=== PATIENT | male | born 1980 | race Caucasian/White ===

== ENCOUNTER 2019-09-30 14:37 | Observation (INO) | payer SELFPAY ==
[2019-09-30] VITALS (9 sets, daily range): BP systolic 138–170; BP diastolic 75–102; PULSE 53–86; RESP 17–18; TEMP 36.8; O2SAT 92–100; BMI 21.5
--- NOTE | 2019-09-30 16:14 | ED_ITS ---
Documented by User: Jackie Ortiz DO 09/30/19 17:43 HPI - General Adult General: Chief complaint: General Medical Stated complaint: dont feel good, side pain, n/v Time Seen by Provider: 09/30/19 16:14 History of Present Illness: HPI narrative: Pt states he has had severe luq and left side pain since yesterday morning. It is constant but occasionally gets worse. States he has had some vomiting but the pain is the worst part. He denies any urinary symptoms. States he feels feverish and has chills. Onset (ago): day(s) (2) Location: abdomen Radiation: flank Severity: severe Severity scale (1-10): 10 Quality: stabbing Pain Consistency: constant Relieving factors: none Exacerbating factors: none Associated symptoms: Reports decreased appetite, nausea, short of breath and vomiting; Deny chest pain, dyspnea, headache(s) or rash Treatments prior to arrival: none Review of Systems General: Reports: 10 or more systems reviewed and unremarkable except in HPI and below Const: Denies: fatigue ENMT: Denies: throat pain Card: Denies: chest pain Resp: Denies: shortness of breath or productive cough GI: Reports: abdominal pain, nausea and vomiting : Reports: flank pain Musc: Denies: back pain or extremity swelling Skin/Breast: Denies: rash Neuro: Denies: headache, numbness in extremities or weakness in extremities PFSH ED PFSH: Social History Smoking and tobacco status: current every day smoker Physical Exam Const: COMMON NORMALS: no apparent distress and oriented x3 GENERAL APPEARANCE: cooperative; not in distress HENMT: COMMON NORMALS: normocephalic HEAD & SCALP: normal to inspection and normocephalic MOUTH: oral and palatal mucosa normal and lip normal THROAT: posterior oropharynx normal and tonsils normal Neck/C-Spine: COMMON NORMALS: full ROM, no lymphadenopathy, supple and no meningeal signs GENERAL: Yes normal visual inspection and Yes trachea midline Chest: COMMONS NORMALS: inspection of chest normal Resp: COMMON NORMALS: normal respiratory effort and clear to auscultation bilaterally EFFORT & INSPECTION: Yes able to speak in complete sentences and No respiratory distress AUSCULTATION: clear to auscultation bilaterally and diminished lung sounds diffuse Cardio: COMMON NORMALS: regular rate, regular rhythm, S1 normal heart sound, S2 normal heart sound and no murmurs RATE: regular rate RHYTHM: regular rhythm HEART SOUNDS: S1 normal and S2 normal PERIPHERAL PULSES: radial pulses present and dorsalis pedis pulses present GI: INSPECTION: Yes normal to inspection AUSCULTATION: Yes normoactive bowel sounds PALPATION: Yes tender Details: LUQ RECTAL EXAM: Yes deferred : COMMON NORMALS: Yes no CVA tenderness BLADDER/KIDNEY EXAM: Yes no CVA tenderness Back/Pelvis: COMMON NORMALS: no CVA tenderness Extremity: COMMON NORMALS: normal to inspection, full ROM, normal capillary refill, no calf tenderness and no pedal edema Neuro: COMMON NORMALS: oriented x3, CN's II-XII intact bilaterally, moves all extremities and no focal motor deficits MENINGEAL SIGNS: Yes no meningeal signs Skin: COMMON NORMALS: no rashes or lesions noted GENERAL SKIN EXAM: no rashes or lesions noted Course Vital Signs: Vital signs: Vital Signs Temperature 98.3 F 09/30/19 21:25 Pulse Rate 71 09/30/19 21:25 Respiratory Rate 18 09/30/19 22:38 Blood Pressure 161/100 09/30/19 21:25 Pulse Oximetry 100 09/30/19 21:25 MDM - General Adult MDM Narrative: Medical decision making narrative: Pt has a large gall stone on ct that is near neck and may be causing obstruction, I will get us of gb for better picture of cbd. Dr Tejada will assume care Lab Data: Labs: Lab Results 09/30/19 09/30/19 09/30/19 Range/Units 16:07 16:07 16:55 WBC 10.5 H (4.0-10.0) 10^3/ uL RBC 6.00 H (4.1-5.3) 10^6/u L Hgb 17.4 H (11.7-16.6) g/dL Hct 55.1 H (42.0-52.0) % MCV 91.8 (80-94) fL MCH 29.0 (28.0-34.0) pg MCHC 31.6 (30.0-36.0) g/dL RDW 13.8 (12.1-15.1) % Plt Count 305 (130-400) 10^3/c mm MPV 9.8 (7.4-10.4) fL Neut % (Auto) 79.8 % Lymph % (Auto) 13.0 % [place] % (Auto) 5.6 % Eos % (Auto) 0.8 % Baso % (Auto) 0.4 % Neut # (Auto) 8.4 H (1.8-7.7) 10^3/u L Lymph # (Auto) 1.4 (0.8-4.8) 10^3/u L [place] # (Auto) 0.6 (0.2-0.9) 10^3/u L Eos # (Auto) 0.1 (0.0-0.8) 10^3/u L Baso # (Auto) 0.0 (0.0-0.1) 10^3/u L Nucleated RBC % (a uto) 0 % Nucleated RBCs # 0.0 /100WBC Sodium 137 (136-145) mmol/L Potassium 4.3 (3.5-5.1) mmol/L Chloride 100 (98-107) mmol/L Carbon Dioxide 22 (22-29) mmol/L Anion Gap 19.3 H (5-19) BUN 7 (6-20) mg/dL Creatinine 0.8 (0.7-1.2) mg/dL GFR Calculation 109.4 (90-130) mL/min Glucose 114 (65-115) mg/dL Calculated Osmolal ity 281 L (285-295) mOsm/k g Calcium 10.2 (8.5-10.5) mg/dL Total Bilirubin 0.4 (0.15-1.2) mg/dL AST 21 (0-40) U/L ALT 43 H (0-41) U/L Alkaline Phosphata se 109 (40-130) IU/L Total Protein 7.7 (6.6-8.7) g/dL Albumin 4.6 (3.5-5.2) g/dL Globulin 3.1 (1.3-4.6) g/dL Lipase 17 (13-60) U/L Urine Color Yellow (Yellow) Urine Appearance Clear (CLEAR) Urine pH 7 (5-7) Ur Specific Gravit y 1.015 (1.005-1.030) Urine Protein Neg (Negative) Urine Glucose (UA) Norm (Normal) Urine Ketones Negative (Negative) Urine Blood Neg (Negative) Urine Nitrate Negative (Negative) Urine Bilirubin Neg (NEGATIVE) Urine Urobilinogen Norm (Negative) mg/dL Ur Leukocyte Yarelis ase Negative (Negative) Imaging Data^: CXR: Radiologist's impression: [place] [address] XRay Report Signed Patient: Adilson Kruse #: [id number] : 1980Acct#:[id number] Age/Sex: 38 / MADM Date: 09/30/19 Loc: ERRoom/Bed: Attending Dr: Ordering Provider/Ordering MD: Jackie Ortiz DO Date of Service: 09/30/19 Procedure(s): XR chest 1V portable [id number] Accession Number(s): [id number] Report Number: [id number] PROCEDURE INFORMATION: Exam: XR Chest, 1 View Exam date and time: 09/30/2019 5:03 PM Age: 38 years old Clinical indication: Shortness of breath; Left-sided chest pain; Additional info: Pneumonia TECHNIQUE: Imaging protocol: XR of the chest Views: 1 view. COMPARISON: No relevant prior studies available. FINDINGS: Lungs: Unremarkable. No consolidation. Pleural space: Unremarkable. No pleural effusion. No pneumothorax. Heart/Mediastinum: Unremarkable. No cardiomegaly. Bones/joints: Unremarkable. XR/XR chest 1V portable [id number] IMPRESSION: No acute findings. Dictated By:Bharath Zhu Signed By:Jose Juan Zhu Date/Time: CT Abd/Pel: Radiologist's impression: [place] [address] CT Scan Report Signed Patient: Adilson Kruse #: [id number] : 1980Acct#:[id number] Age/Sex: 38 / MADM Date: 09/30/19 Loc: ERRoom/Bed: Attending Dr: Ordering Provider/Ordering MD: Jackie Ortiz DO Date of Service: 09/30/19 Procedure(s): CT kidney stone [id number] Accession Number(s): [id number] Report Number: [id number] PROCEDURE INFORMATION: Exam: CT Abdomen And Pelvis Without Contrast Exam date and time: 09/30/2019 4:55 PM Age: 38 years old Clinical indication: Abdominal pain; Left; Prior surgery; Surgery date: 6+ months; Surgery type: Appy; Patient HX: C/O L flank pain w n/v; Additional info: Ureterolithiasis TECHNIQUE: Imaging protocol: Computed tomography of the abdomen and pelvis without contrast. Total DLP: 777.3 mGy-cm Radiation optimization: All CT scans at this facility use at least one of these dose optimization techniques: automated exposure control; mA and/or kV adjustment per patient size (includes targeted exams where dose is matched to clinical indication); or iterative reconstruction. COMPARISON: No relevant prior studies available. FINDINGS: Lungs: Limited assessment lung bases without visible evidence of active cardiopulmonary process. Liver: Unremarkable. No mass. Gallbladder and bile ducts: Enlarged gallbladder measuring 12.8 cm x 4.9 cm x 6 cm containing a solitary large gallstone that measures 22 mm located at the neck of the gallbladder. Potential exists for cystic duct obstruction. No gallbladder wall thickening or pericholecystic fluid. No visible intra or extrahepatic biliary ectasia. Pancreas: Pancreas unremarkable. No visible pancreatic ductal ectasia. Spleen: Spleen unremarkable. Adrenals: Adrenal glands unremarkable. Kidneys and ureters: Left kidney contains a solitary very tiny nonobstructing calyceal nephrolithiasis focus measuring under 2 mm. Right kidney unremarkable. No hydronephrosis or perinephric fluid. No visible ureterolithiasis. Stomach and bowel: Mild diverticulosis coli without evidence for diverticulitis. Nonobstructive bowel pattern. No visible adynamic or reactive ileus. Appendix: Status post appendectomy. Intraperitoneal space: No visible intraperitoneal ascites. Vasculature: The abdominal aorta is nonaneurysmal. Osseous structures intact. No visible active musculoskeletal pathology. Lymph nodes: No visible mesenteritis/panniculitis or mesenteric lymphadenitis/lymphadenopathy. Bladder: Urinary bladder unremarkable. Reproductive: Unremarkable as visualized. Bones/joints: See Vasculature finding. Soft tissues: Unremarkable. CT/CT kidney stone [id number] IMPRESSION: 1. Examination reveals a very large gallbladder containing a solitary large gallstone that measures 22 mm located at the neck of the gallbladder. 2. Potential exists for cystic duct obstruction. 3. No visible current intra or extrahepatic biliary ectasia. 4. Solitary tiny focus of nonobstructing nephrolithiasis left kidney. 5. No visible ureterolithiasis. Radiation Dose CTDIVOL = (mGy): DLP = 777.3 (mGy-cm) Dictated By:Bharath Zhu Signed By:Jose Juan Zhu Date/Time:09/30/191721 DD/ 20 Discharge Plan Discharge Patient Disposition: Admitted As Inpatient Admit Provider: Manuelito Tripp Discharge Date/Time: 09/30/19 21:49 Coding Level of Care Code ED Locomotive Repairer Diesel for Chg Fwd Exam Comprehensive Documented by User: Akil Tejada DO 09/30/19 23:36 HPI - General Adult General: Chief complaint: General Medical Stated complaint: dont feel good, side pain, n/v Time Seen by Provider: 09/30/19 16:14 PFSH ED PFSH: Social History Smoking and tobacco status: current every day smoker Course Consultations: Consultation #1: pedro pablo Time: 19:06 Vital Signs: Vital signs: Vital Signs Temperature 98.3 F 09/30/19 21:25 Pulse Rate 71 09/30/19 21:25 Respiratory Rate 18 09/30/19 22:38 Blood Pressure 161/100 09/30/19 21:25 Pulse Oximetry 100 09/30/19 21:25 MDM - General Adult MDM Narrative: Medical decision making narrative: 38-year-old male checked out to me by Dr. Ortiz. He complains of upper abdominal pain. His white blood cell count is 10.5. CT showed a large stone in the neck of his gallbladder with some edema. There was some question about his bile ducts. Ultrasound confirms that his bile ducts are nondilated. His lipase is 17. His bilirubin is 0.4. He is getting some Zosyn and IV fluid currently. He will be admitted. We spoke with surgery they are willing to admit Lab Data: Labs: Lab Results 09/30/19 09/30/19 09/30/19 Range/Units 16:07 16:07 16:55 WBC 10.5 H (4.0-10.0) 10^3/ uL RBC 6.00 H (4.1-5.3) 10^6/u L Hgb 17.4 H (11.7-16.6) g/dL Hct 55.1 H (42.0-52.0) % MCV 91.8 (80-94) fL MCH 29.0 (28.0-34.0) pg MCHC 31.6 (30.0-36.0) g/dL RDW 13.8 (12.1-15.1) % Plt Count 305 (130-400) 10^3/c mm MPV 9.8 (7.4-10.4) fL Neut % (Auto) 79.8 % Lymph % (Auto) 13.0 % [place] % (Auto) 5.6 % Eos % (Auto) 0.8 % Baso % (Auto) 0.4 % Neut # (Auto) 8.4 H (1.8-7.7) 10^3/u L Lymph # (Auto) 1.4 (0.8-4.8) 10^3/u L [place] # (Auto) 0.6 (0.2-0.9) 10^3/u L Eos # (Auto) 0.1 (0.0-0.8) 10^3/u L Baso # (Auto) 0.0 (0.0-0.1) 10^3/u L Nucleated RBC % (a uto) 0 % Nucleated RBCs # 0.0 /100WBC Sodium 137 (136-145) mmol/L Potassium 4.3 (3.5-5.1) mmol/L Chloride 100 (98-107) mmol/L Carbon Dioxide 22 (22-29) mmol/L Anion Gap 19.3 H (5-19) BUN 7 (6-20) mg/dL Creatinine 0.8 (0.7-1.2) mg/dL GFR Calculation 109.4 (90-130) mL/min Glucose 114 (65-115) mg/dL Calculated Osmolal ity 281 L (285-295) mOsm/k g Calcium 10.2 (8.5-10.5) mg/dL Total Bilirubin 0.4 (0.15-1.2) mg/dL AST 21 (0-40) U/L ALT 43 H (0-41) U/L Alkaline Phosphata se 109 (40-130) IU/L Total Protein 7.7 (6.6-8.7) g/dL Albumin 4.6 (3.5-5.2) g/dL Globulin 3.1 (1.3-4.6) g/dL Lipase 17 (13-60) U/L Urine Color Yellow (Yellow) Urine Appearance Clear (CLEAR) Urine pH 7 (5-7) Ur Specific Gravit y 1.015 (1.005-1.030) Urine Protein Neg (Negative) Urine Glucose (UA) Norm (Normal) Urine Ketones Negative (Negative) Urine Blood Neg (Negative) Urine Nitrate Negative (Negative) Urine Bilirubin Neg (NEGATIVE) Urine Urobilinogen Norm (Negative) mg/dL Ur Leukocyte Yarelis ase Negative (Negative) Discharge Plan Discharge Patient Disposition: Admitted As Inpatient Admit Provider: Manuelito Tripp Discharge Date/Time: 09/30/19 21:49 Coding Level of Care Code ED Locomotive Repairer Diesel for Huey Fwd Exam Comprehensive
--- NOTE | 2019-09-30 16:20 | XRR_ITS ---
PROCEDURE INFORMATION: Exam: XR Chest, 1 View Exam date and time: 09/30/2019 5:03 PM Age: 38 years old Clinical indication: Shortness of breath; Left-sided chest pain; Additional info: Pneumonia TECHNIQUE: Imaging protocol: XR of the chest Views: 1 view. COMPARISON: No relevant prior studies available. FINDINGS: Lungs: Unremarkable. No consolidation. Pleural space: Unremarkable. No pleural effusion. No pneumothorax. Heart/Mediastinum: Unremarkable. No cardiomegaly. Bones/joints: Unremarkable. XR/XR chest 1V portable [id number] IMPRESSION: No acute findings.
--- NOTE | 2019-09-30 16:20 | CTR_ITS ---
PROCEDURE INFORMATION: Exam: CT Abdomen And Pelvis Without Contrast Exam date and time: 09/30/2019 4:55 PM Age: 38 years old Clinical indication: Abdominal pain; Left; Prior surgery; Surgery date: 6+ months; Surgery type: Appy; Patient HX: C/O L flank pain w n/v; Additional info: Ureterolithiasis TECHNIQUE: Imaging protocol: Computed tomography of the abdomen and pelvis without contrast. Total DLP: 777.3 mGy-cm Radiation optimization: All CT scans at this facility use at least one of these dose optimization techniques: automated exposure control; mA and/or kV adjustment per patient size (includes targeted exams where dose is matched to clinical indication); or iterative reconstruction. COMPARISON: No relevant prior studies available. FINDINGS: Lungs: Limited assessment lung bases without visible evidence of active cardiopulmonary process. Liver: Unremarkable. No mass. Gallbladder and bile ducts: Enlarged gallbladder measuring 12.8 cm x 4.9 cm x 6 cm containing a solitary large gallstone that measures 22 mm located at the neck of the gallbladder. Potential exists for cystic duct obstruction. No gallbladder wall thickening or pericholecystic fluid. No visible intra or extrahepatic biliary ectasia. Pancreas: Pancreas unremarkable. No visible pancreatic ductal ectasia. Spleen: Spleen unremarkable. Adrenals: Adrenal glands unremarkable. Kidneys and ureters: Left kidney contains a solitary very tiny nonobstructing calyceal nephrolithiasis focus measuring under 2 mm. Right kidney unremarkable. No hydronephrosis or perinephric fluid. No visible ureterolithiasis. Stomach and bowel: Mild diverticulosis coli without evidence for diverticulitis. Nonobstructive bowel pattern. No visible adynamic or reactive ileus. Appendix: Status post appendectomy. Intraperitoneal space: No visible intraperitoneal ascites. Vasculature: The abdominal aorta is nonaneurysmal. Osseous structures intact. No visible active musculoskeletal pathology. Lymph nodes: No visible mesenteritis/panniculitis or mesenteric lymphadenitis/lymphadenopathy. Bladder: Urinary bladder unremarkable. Reproductive: Unremarkable as visualized. Bones/joints: See Vasculature finding. Soft tissues: Unremarkable. CT/CT kidney stone [id number] IMPRESSION: 1. Examination reveals a very large gallbladder containing a solitary large gallstone that measures 22 mm located at the neck of the gallbladder. 2. Potential exists for cystic duct obstruction. 3. No visible current intra or extrahepatic biliary ectasia. 4. Solitary tiny focus of nonobstructing nephrolithiasis left kidney. 5. No visible ureterolithiasis. Radiation Dose CTDIVOL = (mGy): DLP = 777.3 (mGy-cm)
[2019-09-30 16:29] LABS: Basophils % 0.4 %; Eosinophils # 0.1 10^3/uL (0.0-0.8); Eosinophils % 0.8 %; Hematocrit 55.1 % (42.0-52.0); Hemoglobin 17.4 g/dL (11.7-16.6); Lymphocytes # 1.4 10^3/uL (0.8-4.8); Mean Corpuscular HGB Conc 31.6 g/dL (30.0-36.0); Mean Corpuscular Volume 91.8 fL (80-94); Mean Platelet Volume 9.8 fL (7.4-10.4); Monocytes # 0.6 10^3/uL (0.2-0.9); Monocytes % 5.6 %; Neutrophils # 8.4 10^3/uL (1.8-7.7); Neutrophils % 79.8 %; Nucleated Red Blood Cells % 0 %; Platelet Count 305 10^3/cmm (130-400); Red Cell Distribution Width 13.8 % (12.1-15.1); White Blood Count 10.5 10^3/uL (4.0-10.0)
[2019-09-30 17:01] LABS: Alanine Aminotransferase 43 U/L (0-41); Albumin Level 4.6 g/dL (3.5-5.2); Alkaline Phosphatase 109 IU/L (40-130); Anion Gap 19.3 (5-19); Aspartate Amino Transferase 21 U/L (0-40); Blood Urea Nitrogen 7 mg/dL (6-20); Calcium 10.2 mg/dL (8.5-10.5); Carbon Dioxide 22 mmol/L (22-29); Chloride 100 mmol/L (98-107); Globulin 3.1 g/dL (1.3-4.6); Glomerular Filtration Rate 109.4 mL/min (90-130); Glucose 114 mg/dL (65-115); Lipase 17 U/L (13-60); Osmolality Calculated 281 mOsm/kg (285-295); Potassium 4.3 mmol/L (3.5-5.1); Sodium 137 mmol/L (136-145); Total Bilirubin 0.4 mg/dL (0.15-1.2); Total Protein 7.7 g/dL (6.6-8.7)
[2019-09-30 17:11] LABS: Add Urine Microscopic? NO
[2019-09-30 17:13] LABS: Bilirubin Urine Neg (NEGATIVE); Blood Urine Neg (Negative); Glucose Urine UA Norm (Normal); Ketones Urine Negative (Negative); Leukocyte Esterase Urine Negative (Negative); Nitrate Urine Negative (Negative); Protein Urine Neg (Negative); Specific Gravity, Urine 1.015 (1.005-1.030); Urine Appearance Clear (CLEAR); Urine Color Yellow (Yellow); Urobilinogen Urine Norm (Negative); pH Urine 7 (5-7)
--- NOTE | 2019-09-30 17:42 | USR_ITS ---
PROCEDURE INFORMATION: Exam: US Abdomen Limited, Right Upper Quadrant Exam date and time: 09/30/2019 6:42 PM Age: 38 years old Clinical indication: Abdominal pain; Additional info: Gallstone TECHNIQUE: Imaging protocol: Real-time ultrasound of the abdomen with image documentation. Examination was focused on the right upper quadrant. COMPARISON: No relevant prior studies available. FINDINGS: Liver: No intra or extrahepatic biliary ectasia. Common bile duct 3 mm. Hepatic parenchyma echogenicity appears normal. Gallbladder: Enlarged gallbladder containing potentially 2 gallstones. Only 1 gallstone is visible on the CT examination. The largest gallstone measures 2.7 cm maximum diameter and the 2nd 1.9 mm based on sonographic measurements. No gallbladder wall thickening or pericholecystic fluid. Positive sonographic Hickman sign. Common bile duct: 3 mm. Pancreas: Pancreas not well imaged due to bowel gas. Right kidney: Right kidney measures 11.2 cm x 5.3 cm x 6 cm. No hydronephrosis or perinephric fluid. Portal venous: Hepatopetal portal venous flow. US/US gall bladder [id number] IMPRESSION: 1. Enlarged gallbladder containing potentially 2 gallstones. Only 1 gallstone visualized on the CT examination. 2. Positive sonographic Hickman sign. 3. No visible intra or extrahepatic biliary ectasia.
[2019-09-30] MEDS: ondansetron 2 mg/ML SDV 2 mL 4 MG IVP (18:49)
[2019-09-30] MEDS: morphine 4 mg/mL SDV 1 mL IVP ×3 (18:51→22:38)
[2019-09-30] MEDS: sodium chloride 0.9% 1,000 ML 999 ML IV (18:55)
[2019-09-30] MEDS: piperacillin-tazobactam 3.375 GM in sodium chloride 0.9% (plus) 50 ML IV (18:56)
[2019-09-30] MEDS: lidocaine 2% viscous 15 ML, aluminum-mag hydrox-simethicon 30 ML, sucralfate oral liq 1 GM PO (20:28)
[2019-09-30] MEDS: sodium chloride 0.9% 1,000 ML 125 ML IV (22:37)
--- NOTE | 2019-09-30 23:38 | PC.NURSE ---
DURING ADMISSION ASSESSMENT, ASKED PATIENT ABOUT ALCOHOL AND DRUG USE, PATIENT STATED I SMOKE CIGS, WEED, AND METH, ILL BE HONEST PATIENT STATES I SMOKE WEED ALL DAY EVERYDAY I HAVE NOT DRANK IN ABOUT A WEEK AND HAVENT DONE METH IN ABOUT A WEEK I THINK PATIENT ALSO STATES I SMOKE A PACK A DAY OF CIGS .
[2019-10-01] VITALS (21 sets, daily range): BP systolic 109–154; BP diastolic 66–91; PULSE 58–100; RESP 12–24; TEMP 36.4–37.4; O2SAT 94–100
[2019-10-01 05:41] LABS: Basophils % 0.2 %; Eosinophils % 0.2 %; Hematocrit 47.5 % (42.0-52.0); Hemoglobin 15.6 g/dL (11.7-16.6); Lymphocytes # 1.6 10^3/uL (0.8-4.8); Lymphocytes % 13.3 %; Mean Corpuscular HGB Conc 32.8 g/dL (30.0-36.0); Mean Corpuscular Volume 88.3 fL (80-94); Mean Platelet Volume 9.6 fL (7.4-10.4); Monocytes # 0.9 10^3/uL (0.2-0.9); Monocytes % 7.2 %; Neutrophils # 9.6 10^3/uL (1.8-7.7); Neutrophils % 78.7 %; Nucleated Red Blood Cells % 0 %; Platelet Count 305 10^3/cmm (130-400); Red Blood Count 5.38 10^6/uL (4.1-5.3); Red Cell Distribution Width 13.8 % (12.1-15.1); White Blood Count 12.2 10^3/uL (4.0-10.0)
[2019-10-01 05:57] LABS: Alanine Aminotransferase 42 U/L (0-41); Alkaline Phosphatase 110 IU/L (40-130); Anion Gap 15.1 (5-19); Aspartate Amino Transferase 25 U/L (0-40); Blood Urea Nitrogen 7 mg/dL (6-20); Calcium 9.1 mg/dL (8.5-10.5); Carbon Dioxide 24 mmol/L (22-29); Chloride 100 mmol/L (98-107); Globulin 2.9 g/dL (1.3-4.6); Glomerular Filtration Rate 109.4 mL/min (90-130); Glucose 124 mg/dL (65-115); Osmolality Calculated 277 mOsm/kg (285-295); Potassium 4.1 mmol/L (3.5-5.1); Sodium 135 mmol/L (136-145); Total Bilirubin 0.5 mg/dL (0.15-1.2); Total Protein 6.9 g/dL (6.6-8.7)
[2019-10-01] MEDS: sodium chloride 0.9% 1,000 ML 125 ML IV ×2 (07:56→10:58)
--- NOTE | 2019-10-01 08:25 | PC.NURSE ---
Patient to surgery at this time. Patient is A&Ox3. Respirations even and non-labored on room air.
--- NOTE | 2019-10-01 08:37 | P.ANESASSM_ITS ---
Pre-Anesthetic Assessment Pre-Anesthetic Assessment: Height/Weight: Height 1.78 m Weight 68.039 kg Temp Pulse Resp BP Pulse Ox 99.4 F 85 18 144/91 95 10/01/19 08:26 10/01/19 08:26 10/01/19 08:26 10/01/19 08:26 10/01/19 08:26 Preop Diagnosis: cholelithiasis Proposed Procedure: Operation Date: 10/01/19 09:20 Proposed Procedures p Laparoscopic Cholecystectomy(Not Applicable) - Manuelito Tripp MD Last intake: Intake Last Liquid Date 09/30/19 Last Liquid Time 23:00 Last Solid Date 09/30/19 Last Solid Time 14:00 Social: Social History: Alcohol (h/o of abuse) and Tobacco Exam: Pre-Anes Outpt Exam: alert, oriented x 3, clear to auscultation bilaterally and regular rate & rhythm Airway: Submandibular: WNL Cervical ROM: WNL MP: 1 Dentition: Other (very poor dentation ) History/ROS: No significant history except as noted Pulmonary: Pulmonary: None reported CV/HEM: CV/HEM: None reported : : None reported Hepatic: Hepatic: None reported GI: GI: GERD Metabolic: Metabolic: None reported Musc/skel: Musc/skel: None reported Neuropsych: Neuropsych: None reported Anesthetic Plan: ASA status: 2E Anesthesia: Anesthesia Evaluation and General Risk of > 500 ml blood loss (7ml/kg in children): No Meds/Allergies Current Medications: Current Medications Generic Name Dose Route Start Last Admin Trade Name Freq PRN Reason Stop Dose Admin Sodium Chloride 1,000 mls @ 125 m ls/hr 09/30/19 21:25 10/01/19 07:56 Sodium Chloride 0.9% IV 125 mls/hr .Q8H BRENDAN Administration Morphine Sulfate 4 mg 09/30/19 21:25 09/30/19 22:38 Morphine IVP 4 mg Q4H PRN Administration SEVERE PAIN PFSH Anesthesia PFSH: Social History Smoking and tobacco status: current every day smoker Data Anesthesia CBC & Chem 7: 10/01/19 05:30 10/01/19 05:30 Other Labs: Laboratory Results - last 48 hr 09/30/19 09/30/19 09/30/19 16:07 16:07 16:55 WBC 10.5 H RBC 6.00 H Hgb 17.4 H Hct 55.1 H MCV 91.8 MCH 29.0 MCHC 31.6 RDW 13.8 Plt Count 305 MPV 9.8 Neut % (Auto) 79.8 Lymph % (Auto) 13.0 [place] % (Auto) 5.6 Eos % (Auto) 0.8 Baso % (Auto) 0.4 Neut # (Auto) 8.4 H Lymph # (Auto) 1.4 [place] # (Auto) 0.6 Eos # (Auto) 0.1 Baso # (Auto) 0.0 Nucleated RBC % (auto) 0 Nucleated RBCs # 0.0 Sodium 137 Potassium 4.3 Chloride 100 Carbon Dioxide 22 Anion Gap 19.3 H BUN 7 Creatinine 0.8 GFR Calculation 109.4 Glucose 114 Calculated Osmolality 281 L Calcium 10.2 Total Bilirubin 0.4 AST 21 ALT 43 H Alkaline Phosphatase 109 Total Protein 7.7 Albumin 4.6 Globulin 3.1 Lipase 17 Urine Color Yellow Urine Appearance Clear Urine pH 7 Ur Specific [place] 1.015 Urine Protein Neg Urine Glucose (UA) Norm Urine Ketones Negative Urine Blood Neg Urine Nitrate Negative Urine Bilirubin Neg Urine Urobilinogen Norm Ur Leukocyte Esterase Negative 10/01/19 10/01/19 05:30 05:30 WBC 12.2 H RBC 5.38 H Hgb 15.6 Hct 47.5 MCV 88.3 MCH 29.0 MCHC 32.8 RDW 13.8 Plt Count 305 MPV 9.6 Neut % (Auto) 78.7 Lymph % (Auto) 13.3 [place] % (Auto) 7.2 Eos % (Auto) 0.2 Baso % (Auto) 0.2 Neut # (Auto) 9.6 H Lymph # (Auto) 1.6 [place] # (Auto) 0.9 Eos # (Auto) 0.0 Baso # (Auto) 0.0 Nucleated RBC % (auto) 0 Nucleated RBCs # 0.0 Sodium 135 L Potassium 4.1 Chloride 100 Carbon Dioxide 24 Anion Gap 15.1 BUN 7 Creatinine 0.8 GFR Calculation 109.4 Glucose 124 H Calculated Osmolality 277 L Calcium 9.1 Total Bilirubin 0.5 AST 25 ALT 42 H Alkaline Phosphatase 110 Total Protein 6.9 Albumin 4.0 Globulin 2.9 Lipase Urine Color Urine Appearance Urine pH Ur Specific [place] Urine Protein Urine Glucose (UA) Urine Ketones Urine Blood Urine Nitrate Urine Bilirubin Urine Urobilinogen Ur Leukocyte Esterase Cardiac Studies: No Data to Display
--- NOTE | 2019-10-01 08:44 | PM.HP ---
Providers/Chief Complaint Admitting Physician: Manuelito Tripp MD Chief Complaint: dont feel good, side pain, n/v History of Present Illness Adilson Kruse is a 38 year old male who woke up yesterday morning with severe left and epigastric pain which progressively worsened over the course of the day. Patient subsequent went to the ER yesterday evening, denies any nausea or vomiting today though he did have an episode of vomiting yesterday. No fevers chills or jaundice. No similar episodes in the past Review of Systems General: Reports: 10 or more systems reviewed and unremarkable except in HPI and below Medications/Allergies Home Medications Medication Instructions Recorded Confirmed Last Taken Type No Known Home Medications 09/30/19 09/30/19 Unknown History Allergies Allergy/AdvReac Type Severity Reaction Status Date / Time No Known Allergies Allergy Verified 09/30/19 14:56 PFSH Acute PFSH: Social History Smoking and tobacco status: current every day smoker Vitals/I&O/Wt Last Vital Signs Temp 99.4 F 10/01/19 08:26 Pulse 85 10/01/19 08:26 Resp 18 10/01/19 08:26 BP 144/91 10/01/19 08:26 Pulse Ox 95 10/01/19 08:26 09/30/19 10/01/19 10/01/19 22:59 06:59 14:59 Intake Total 1050 / 2050 1000 / 2050 Output Total 0 / 900 900 / 900 400 / 400 Balance 1050 / 1150 100 / 1150 -400 / -400 Weight last 48 hrs Weight 150 lb Physical Exam Narrative: EXAM NARRATIVE: HEENT: Normocephalic Eye: Sclera /conjunctiva normal Respiratory and chest: Bilateral clear breath sounds on auscultation Cardiovascular: Normal S1 and S2 heart sounds Abdomen: Soft to palpation, tender right quadrant Neurological: Oriented to place person and time Skin: Intact, no lesions appreciated on gross exam Data : 10/01/19 05:30 10/01/19 05:30 Other data: 1. Enlarged gallbladder containing potentially 2 gallstones. Only 1 gallstone visualized on the CT examination. 2. Positive sonographic Hickman sign. 3. No visible intra or extrahepatic biliary ectasia. A&P Assessment and plan (1) Acute cholecystitis due to biliary calculus: 38-year-old gentleman with symptomatic acute calculus cholecystitis. Plan for laparoscopic possible open cholecystectomy. Procedure, risks, benefits and alternatives have been discussed with the patient who wishes to proceed with surgery. Status: Resolved Attestations Medical Necessity Statement*: Acute calculus cholecystitis Coding Level of Care Code Acute Cooker Process Cheese for [facility] Diagnoses Acute cholecystitis due to biliary calculus K80.00
[2019-10-01] MEDS: piperacillin-tazobactam 3.375 GM in sodium chloride 0.9% (plus) 50 ML IV (08:55)
--- NOTE | 2019-10-01 09:51 | PM.OP ---
Operative Report Date of procedure: October 01, 2019 Pre-op Diagnosis: cholelithiasis Post-op Diagnosis: Acute calculus cholecystitis Procedure Done: Laparoscopic cholecystectomy Specimens removed/disposition: Gallbladder Surgeon: Manuelito Tripp Anesthesia: General Estimated blood loss (mL): 10 Condition: stable Disposition: PACU Procedure: The patient was taken to the operating room and was intubated under general anesthesia. After the antibiotic had been administered, the abdomen was prepped and draped in a sterile manner. Using a #15 blade, a 1 centimeter infraumbilical curvilinear incision was made and using an open Shawn technique the peritoneal cavity was entered. A 10 millimeter port was placed and 15 millimeters of pneumoperitoneum was created. A 10 millimeter, 30 degrees scope was then introduced. Three 5 millimeter ports were placed in the epigastric, midclavicular and the anterior axillary line two fingerbreadths below the costal margin on the right side under the direct visualization. The gallbladder is acutely inflamed and distended and it was decompressed using an aspiration needle. Ratcheted forceps were introduced into the lateral most port and was used to retract the fundus of the gallbladder cephalad and using forceps the infundibulum of the gallbladder was retracted laterally. Using L-hook cautery the peritoneum overlying the Calot's triangle was opened medially and laterally until the cystic duct and the cystic artery were skeletonized. Dissection was carried along the body of the gallbladder and after ensuring critical view of safety, 4 clips applied on the cystic duct and 3 clips applied on the cystic artery and cut leaving, 3 clips on the remaining portion of the duct and 2 clips on the remaining portion of the artery. The rest of the gallbladder was dissected off the liver using L-hook cautery. There was no bleeding or bile leaking noted from the gallbladder fossa and the clips appeared to be in place. An EndoCatch bag was introduced to remove the gallbladder. All the ports were removed under direct visualization and there was no bleeding noted from the port sites. The fascia of the umbilicus was closed using [id number] 0 Vicryl sutures and the subcutaneous tissue was approximated using 3-0 Vicryl sutures. The skin at all four ports were closed using 4-0 Monocryl and Dermabond. A total of 10 millimeters of 0.5% Marcaine was infiltrated around the port sites. The patient was stable throughout the procedure.
--- NOTE | 2019-10-01 09:53 | PM.DCS ---
Discharge Providers Date of Admission: 09/30/19 19:07 Date of Discharge: October 01, 2019 Attending Provider at Admission: Manuelito Tripp MD Attending Provider at Discharge: Manuelito Tripp MD Diagnoses at Discharge Discharge Diagnosis (1) Acute cholecystitis due to biliary calculus: Status: Resolved Reason for Visit Reason for Visit: Reason For Visit: dont feel good, side pain, n/v Hospital Course Hospital Course: This is a 38-year-old gentleman who presented to the ER yesterday with abdominal pain nausea and vomiting with ultrasound showing gallstones. Patient was admitted to the hospital overnight and underwent laparoscopic cholecystectomy the following morning. At time of discharge his vital signs are stable and he is tolerating a diet. Discharge Data Data Completed and Pending: Completed Studies During Hospitalization Category Date Time Status CT kidney stone 7 [id number] Stat Cat Scan 09/30/19 16:20 Completed XR chest 1V steph ble [id number] Stat Exams 09/30/19 16:20 Completed US gall bladder 7 [id number] Urgent Ultrasound 09/30/19 17:42 Completed Labs from last 24 hours 10/01/19 10/01/19 09/30/19 05:30 05:30 16:55 WBC 12.2 H RBC 5.38 H Hgb 15.6 Hct 47.5 MCV 88.3 MCH 29.0 MCHC 32.8 RDW 13.8 Plt Count 305 MPV 9.6 Neut % (Auto) 78.7 Lymph % (Auto) 13.3 [place] % (Auto) 7.2 Eos % (Auto) 0.2 Baso % (Auto) 0.2 Neut # (Auto) 9.6 H Lymph # (Auto) 1.6 [place] # (Auto) 0.9 Eos # (Auto) 0.0 Baso # (Auto) 0.0 Nucleated RBC % (a uto) 0 Nucleated RBCs # 0.0 Sodium 135 L Potassium 4.1 Chloride 100 Carbon Dioxide 24 Anion Gap 15.1 BUN 7 Creatinine 0.8 GFR Calculation 109.4 Glucose 124 H Calculated Osmolal ity 277 L Calcium 9.1 Total Bilirubin 0.5 AST 25 ALT 42 H Alkaline Phosphata se 110 Total Protein 6.9 Albumin 4.0 Globulin 2.9 Lipase Urine Color Yellow Urine Appearance Clear Urine pH 7 Ur Specific Gravit y 1.015 Urine Protein Neg Urine Glucose (UA) Norm Urine Ketones Negative Urine Blood Neg Urine Nitrate Negative Urine Bilirubin Neg Urine Urobilinogen Norm Ur Leukocyte Yarelis ase Negative 09/30/19 09/30/19 16:07 16:07 WBC 10.5 H RBC 6.00 H Hgb 17.4 H Hct 55.1 H MCV 91.8 MCH 29.0 MCHC 31.6 RDW 13.8 Plt Count 305 MPV 9.8 Neut % (Auto) 79.8 Lymph % (Auto) 13.0 [place] % (Auto) 5.6 Eos % (Auto) 0.8 Baso % (Auto) 0.4 Neut # (Auto) 8.4 H Lymph # (Auto) 1.4 [place] # (Auto) 0.6 Eos # (Auto) 0.1 Baso # (Auto) 0.0 Nucleated RBC % (a uto) 0 Nucleated RBCs # 0.0 Sodium 137 Potassium 4.3 Chloride 100 Carbon Dioxide 22 Anion Gap 19.3 H BUN 7 Creatinine 0.8 GFR Calculation 109.4 Glucose 114 Calculated Osmolal ity 281 L Calcium 10.2 Total Bilirubin 0.4 AST 21 ALT 43 H Alkaline Phosphata se 109 Total Protein 7.7 Albumin 4.6 Globulin 3.1 Lipase 17 Urine Color Urine Appearance Urine pH Ur Specific Gravit y Urine Protein Urine Glucose (UA) Urine Ketones Urine Blood Urine Nitrate Urine Bilirubin Urine Urobilinogen Ur Leukocyte Yarelis ase Vitals: Last Vital Signs Temp 99.4 F 10/01/19 08:26 Pulse 85 10/01/19 08:26 Resp 18 10/01/19 08:26 BP 144/91 10/01/19 08:26 Pulse Ox 95 10/01/19 08:26 Discharge Plan Discharge Patient Disposition: Home, Self-Care Condition: Stable Prescriptions: [place] 5-325 mg tablet 1 tab PO Q6H 7 Days Qty: 20 RF: 0 Colace 100 mg capsule 100 mg PO BID Qty: 30 RF: 0 Referrals: Manuelito Tripp MD [Physician] - 2 weeks Activity Restrictions/Additional Instructions: 1. Up and walking as tolerated. 2. Ok to shower in 48 hours after surgery. 3. Remove Dermabond dressing in 7-10 days. 4. Do not lift more than 10 pounds. 5. Do not operate heavy machinery or drive while using pain medications. 6. Advised to return to ER or contact my office if there are any signs of infection like, increasing pain, fevers, chills, redness or drainage of pus. Discharge Attestations Time Spent in Discharge Care*: less than 30 min Quality Metrics Clinical Quality Measures During this hospital stay, did patient experience: None Coding Level of Care Code Acute Attic Blower for [facility] Fwd Diagnoses Acute cholecystitis due to biliary calculus K80.00
--- NOTE | 2019-10-01 09:57 | SUR.PHASEI ---
0956 PATIENT TO PACU AT THIS TIME FROM OR. ORAL AIRWAY IN PLACE. RR EVEN AND UNLABORED. SPO2 99% ON SIMPLE MASK AT 8L. 4 INCISIONS TO ABDOMEN, CLOSED WITH EXOFIN, CDI.
--- NOTE | 2019-10-01 10:12 | SUR.PHASEI ---
1012 ORAL AIRWAY REMOVED AT THIS TIME. SPO2 100% ON SIMPLE MASK AT 8L.
--- NOTE | 2019-10-01 10:41 | PC.NURSE ---
Patient returned from surgery at this time. Patient is rating his pain 9/10 after moving from the stretcher to his bed. Patient is A&Ox3. Respirations even and non-labored on room air.
[2019-10-01] MEDS: morphine 4 mg/mL SDV 1 mL IVP (10:51)
--- NOTE | 2019-10-01 10:52 | SUR.PHASEI ---
1036 PATIENT TO MED SURG AT THIS TIME. TOLERATING ICE CHIPS. RATES PAIN 7/10, PATIENT DROWSY, FALLING BACK TO SLEEP QUICKLY. 4 INCISIONS TO ABDOMEN, CDI. PATIENT AMBULATED FROM GURNEY TO BED ON MED SURG WITH OUT DIFFICULTLY.
--- NOTE | 2019-10-01 14:33 | PC.CHAP ---
Pastoral Care Encounter/Spiritual Assessment Type of Contact [] Declined furniture designer visit [] Patient/Family/Request visit [] Outpatient visit [] Follow-up visit [] Physician referral [] Code/Alert [X] Routine visit [] Staff referral [] Actively dying [] Patient sleeping [] Family support [] [] Out of room [] Palliative care [] [] Receiving care in room [] Pre-surgical visit [] Trauma [] Long length of stay [] ICU visit [] Other: Relational/Emotional Strength [] Patient feels connected with others/family/visitors/staff [] Distress [] Loneliness/isolation [] Abandonment Spirituality of Patient [] Person of [place] [] Attends Episcopalian of their [place] [] Believes in Prayer [] Reads Bible or Protestant materials [] There are Spiritual issues to be addressed Telephone [place] Interventions [] Prayer [] Active listening [] Non-anxious presence [] Spiritual/emotional support [] Crisis/trauma care [] Spiritual counseling [] Bereavement support [] Provided bereavement packet [] Provided Bible/devotional materials [] Provided toy/stuffed animal, coloring book to patient or family member [] Provided Communion [] Anointing/[place] [] Salvation [] Completed spiritual assessment [] Other: Impact on Illness or Injury [] Angry [] Fearful [] Anxious [] Often cries [] Exhaustion [] Unable to work [] Unable to attend taoist [] Unable to walk/stand [] Unable to read [] Unable to drive [] Unable to eat/drink [] Unable to sleep [] Unable to be with family [] Patient intubated [] Other: Summary Time spent with patient
--- NOTE | 2019-10-01 16:52 | PC.NURSE ---
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 No answer left a message.
--- NOTE | 2019-10-01 18:00 | PC.NURSE ---
Patient discharged at this time. Paper prescriptions given to patient at this time with instructions and follow up appointments reviewed with patient. Patient IV was removed. Patient is A&Ox3. Respirations even and non-labored on room air.
== END 2019-10-01 18:10 | disposition home or self-care (01) ==
LOC: ER 18:23 → MEDSURG 22:23
PROVIDERS: Nurse Practitioner Family; Admitting Provider Surgery; Emergency Provider Emergency Medicine; Visit Provider Surgery
PROC: 0FT44ZZ Resection of Gallbladder, Percutaneous Endoscopic Approach (ICD-10-PCS; CPT 47562; principal; 2019-10-01 09:00)
DX: K80.10 Calculus of gallbladder with chronic cholecystitis without obstruction (principal); K21.9 Gastro-esophageal reflux disease without esophagitis; F17.210 Nicotine dependence, cigarettes, uncomplicated
CPT/HCPCS: 47562; 12345; 36415; 71045; 74176; 76705; 80053; 81003; 83690; 85025; 88304; 94760; 96361; 96365; 96366; 96374; 96375; 96376; 99282; 99284; G0378; J0131; J1100; J1885; J2001; J2270; J2405; J2543; J2704; J2710; J2765; J3010; J3490; J7030